=== PATIENT | male | born 1965 | race Caucasian/White ===

== ENCOUNTER 2024-02-06 19:21 | Outpatient (CLI) | payer OTHER ==
--- NOTE | 2024-02-07 16:36 | Ultrasound Report ---
PROCEDURE: Duplex Ext Veins Left INDICATIONS: LEFT LEG PAIN TECHNIQUE: Real-time imaging, as well as color and pulse Doppler interrogation, were performed of the lower extr emity deep veins from the inguinal ligament to the popliteal fossa. Attempted visualization of the ca lf veins was performed. COMPARISON: None. FINDINGS: The deep veins are normally compressible, and free of intraluminal thrombus. Color and pu lse Doppler demonstrate normal phasic intraluminal flow. There is normal augmentation response to di stal compression maneuver. Left popliteal fossa Mandujano's cyst measuring 6 x 2.6 cm. Additional intramuscular fluid collections in the calf measuring 3.2 x 0.8 x 2.6 and anterolateral left knee measuring 5.8 x 1.3 x 4.3 cm. IMPRESSION: 1.No deep venous thrombosis of the visualized lower extremity. 2.Mandujano's cyst in the popliteal fossa. Additional fluid collections in the proximal calf and anterola teral left knee which may represent evolving hematomas. A short interval ultrasound can be performed for follow-up, at clinical discretion. Reviewed by: Monica Allen MD on 02/07/2024 4:35 PM PDT Approved by: Monica Allen MD on 02/07/2024 4:35 PM PDT Station ID: [id number]
== END 2024-02-06 19:22 | disposition home or self-care (01) ==
LOC: DI 19:21
PROVIDERS: ATTEND Physician Assistant
DX: M71.22 Synovial cyst of popliteal space [Baker], left knee (principal); R93.6 Abnormal findings on diagnostic imaging of limbs; R93.89 Abnormal findings on diagnostic imaging of other specified body structures

== ENCOUNTER 2024-02-21 19:00 | Outpatient (CLI) | payer OTHER ==
--- NOTE | 2024-02-22 09:01 | Ultrasound Report ---
PROCEDURE: Duplex Ext Veins Left INDICATIONS: HEMATOMA TECHNIQUE: Real-time imaging, as well as color and pulse Doppler interrogation, were performed of the LEFT lower extremity deep veins from the inguinal ligament to the popliteal fossa. Attempted visualization of t he calf veins was performed. The region of interest of the knee was also evaluated for is identified fluid collections. COMPARISON: Ultrasound dated 02/06/2024. FINDINGS: The deep veins are normally compressible, and free of intraluminal thrombus. Color and pulse Doppler demonstrate normal phasic intraluminal flow. There is normal augmentation response to distal compre ssion maneuver. Note is made of a 6.9 x 2.6 cm Mandujano cyst which appears to extend inferiorly. A 5.0 x 0.8 x 3 cm foca l collection seen in the lateral knee. IMPRESSION: 1. No deep venous thrombosis of the visualized left lower extremity. 2. The previously seen hematoma appears to blend in with the Mandujano cyst at the proximal medial calf. Recommend follow-up. Reviewed by: Duane Fountain MD on 02/22/2024 9:00 AM PDT Approved by: Duane Fountain MD on 02/22/2024 9:00 AM PDT Station ID: [id number]
== END 2024-02-21 19:01 | disposition home or self-care (01) ==
LOC: DI 19:00
PROVIDERS: ATTEND Physician Assistant
DX: M71.22 Synovial cyst of popliteal space [Baker], left knee (principal); M79.81 Nontraumatic hematoma of soft tissue